=== PATIENT | female | born 2000 | race Caucasian/White ===

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

== ENCOUNTER 2018-02-23 15:36 | Inpatient (IN) | payer MEDICAID ==
[~2018-02-23] VITALS: Ht 175.3 cm; Wt 76.4 kg
[~2018-02-23 15:36] MED LIST changes: -AMOX-580 PO
[2018-02-23] MEDS ORDERED: pantoprazole 40 MG vial IV ONE (15:45)
[2018-02-23] MEDS ORDERED: famotidine/PF 10 mg/ml inj IV ONE (15:45)
[2018-02-23 16:03] LABS: BASOPHILS # (AUTO) 0.1 X10'3 (0-0.2); BASOPHILS % (AUTO) 0.6 % (0-1); EOSINOPHILS # (AUTO) 0.1 X10'3 (0-0.9); EOSINOPHILS % (AUTO) 0.8 % (0-6); HEMATOCRIT 44.3 % (35.0-45.0); HEMOGLOBIN 15.6 g/dl (12.0-16.0); LYMPHOCYTES # (AUTO) 2.3 X10'3 (1.1-4.8); LYMPHOCYTES % (AUTO) 23.7 % (21-51); MEAN CORPUSCULAR HEMOGLOBIN 29.3 PG (27.0-31.0); MEAN CORPUSCULAR HGB CONC 35.1 % (33.0-36.5); MEAN CORPUSCULAR VOLUME 83.4 FL (78-98); MEAN PLATELET VOLUME 9.4 FL (7.4-10.4); MONOCYTES % (AUTO) 10.9 % (2-12); NEUTROPHILS # (AUTO) 6.1 X10'3 (1.8-7.7); PLATELET COUNT 482 X10'3 (140-440); RED BLOOD COUNT 5.32 X10'6 (4.20-5.60); RED CELL DISTRIBUTION WIDTH 14.4 % (11.5-14.5); WHITE BLOOD COUNT 9.5 X10'3 (4.5-11.0)
[2018-02-23] MEDS ORDERED: ondansetron/PF 4mg/2ml inj IV ONE ×3 (16:05→20:35)
[2018-02-23 16:20] LABS: ALANINE AMINOTRANSFERASE 21 U/L (12-78); ALBUMIN 4.5 G/DL (3.4-5.0); ALBUMIN/GLOBULIN RATIO 1.2 (1.1-1.5); ALKALINE PHOSPHATASE 99 IU/L (20-180); ANION GAP 11 (8-16); ASPARTATE AMINO TRANSFERASE 16 U/L (10-37); BILIRUBIN,TOTAL 1.1 MG/DL (0.1-1.0); BLOOD UREA NITROGEN 9 MG/DL (7-18); BUN/CREATININE RATIO 11.8 (6.6-38.0); CALCIUM 9.1 MG/DL (8.5-10.1); CHLORIDE 104 MMOL/L (99-107); CREATININE 0.76 MG/DL (0.40-0.90); GLUCOSE 85 MG/DL (70-104); LIPASE 157 U/L (73-393); POTASSIUM 3.9 MMOL/L (3.5-5.1); SODIUM 141 MMOL/L (135-145); TOTAL CARBON DIOXIDE 25.7 MMOL/L (24-32); TOTAL PROTEIN 8.2 G/DL (6.4-8.2); eGFR > 90 ML/MIN
[2018-02-23] MEDS: morphine 4 MG/ML inj SYRINge IV PRN ×4 (16:20→23:10)
[2018-02-23] MEDS ORDERED: normal saline 1000ML IV soln IVB ONE (16:40)
[2018-02-23 16:58] LABS: URINE HCG NEGATIVE (NEG)
[2018-02-23 17:08] LABS: CLARITY,URINE CLEAR (Clear); COLOR,URINE STRAW (Yellow); GLUCOSE, URINE NEGATIVE (Neg); KETONES,URINE NEGATIVE (Neg); LEUKOCYTE ESTERASE ,URINE NEGATIVE (Neg); NITRITES, URINE NEGATIVE (Neg); OCCULT BLOOD,URINE NEGATIVE (Neg); PROTEIN,URINE NEGATIVE (Neg); UA COLLECTION TYPE CLN CATCH MIDSTREAM; UROBILINOGEN,URINE 0.2 E.U/dL (0.2-1.0)
[2018-02-23] MEDS ORDERED: fentaNYL/PF 50MCG/1 ML 2ML syringe IV ONE ×2 (17:30→19:00)
[2018-02-23] MEDS ORDERED: diphenhydrAMINE 50 mg/ml inj IV ONE (17:50)
[2018-02-23] MEDS ORDERED: DICL50PO5 PO (19:16)
[2018-02-23] MEDS ORDERED: TOPI100T18 PO (19:16)
[2018-02-23] MEDS ORDERED: SUMA11AE (19:18)
[2018-02-23] MEDS ORDERED: SUMA50TA PO (19:18)
[2018-02-23 21:00] VITALS: BP 120/62
[2018-02-23] MEDS ORDERED: MIDAZolam 5mg/5ml vial ONE (21:04)
[2018-02-23] MEDS ORDERED: LIDOcaine Viscous 15ml cup ONE (21:04)
[2018-02-23] MEDS ORDERED: fentaNYL/PF 50MCG/1 ML 2ML syringe ONE (21:04)
[2018-02-23] MEDS ORDERED: diphenhydrAMINE 50 mg/ml inj ONE (21:13)
[2018-02-23 21:31] VITALS: BP 95/56
[2018-02-23 21:41] VITALS: BP 111/75
[2018-02-23 21:51] VITALS: BP 104/69
[2018-02-23 22:01] VITALS: BP 105/62
[2018-02-24] MEDS ORDERED: acetaminophen 325mg tablet PO PRN (00:10)
[2018-02-24] MEDS ORDERED: docusate sod 100mg capsule PO PRN (00:10)
[2018-02-24] MEDS ORDERED: magnesium hydroxide 30ml (MOM) UD suspension PO PRN (00:10)
[2018-02-24] MEDS ORDERED: mag hydrox/Alum hydrox/simeth 30ml oral suspension PO PRN (00:10)
[2018-02-24] MEDS: normal saline 1000ml 1,000 ML IV SCH ×3 (00:17→20:04)
[2018-02-24] MEDS: HYDROmorphone 1 mg/ml syringe IV PRN ×3 (00:17→14:22)
[2018-02-24] MEDS: ondansetron/PF 4mg/2ml inj IV PRN ×4 (00:17→22:32)
[2018-02-24 01:20] VITALS: BP 124/74
[2018-02-24] MEDS ORDERED: diphenhydrAMINE 25mg capsule PO ONE (01:55)
[2018-02-24 07:19] VITALS: BP 96/42
[2018-02-24] MEDS: pantoprazole 40 MG vial IV SCH ×2 (07:44→20:04)
[2018-02-24 11:16] VITALS: BP 101/50
[2018-02-24] MEDS: acetaminophen 325mg tablet PO PRN (11:59)
[2018-02-24] MEDS ORDERED: ketorolac trometh. 30mg/ml inj. IV ONE (22:50)
[2018-02-25] VITALS: BP 117/54
[2018-02-25 04:30] LABS: BASOPHILS # (AUTO) 0.1 X10'3 (0-0.2); EOSINOPHILS # (AUTO) 0.1 X10'3 (0-0.9); EOSINOPHILS % (AUTO) 0.6 % (0-6); HEMATOCRIT 38.3 % (35.0-45.0); HEMOGLOBIN 13.7 g/dl (12.0-16.0); LYMPHOCYTES # (AUTO) 3.2 X10'3 (1.1-4.8); MEAN CORPUSCULAR HEMOGLOBIN 29.4 PG (27.0-31.0); MEAN CORPUSCULAR HGB CONC 35.8 % (33.0-36.5); MEAN CORPUSCULAR VOLUME 82.1 FL (78-98); MEAN PLATELET VOLUME 9.8 FL (7.4-10.4); MONOCYTES # (AUTO) 1.2 X10'3 (0-0.9); MONOCYTES % (AUTO) 9.7 % (2-12); NEUTROPHILS # (AUTO) 7.4 X10'3 (1.8-7.7); NEUTROPHILS % (AUTO) 61.7 % (42-75); PLATELET COUNT 423 X10'3 (140-440); RED BLOOD COUNT 4.67 X10'6 (4.20-5.60); RED CELL DISTRIBUTION WIDTH 13.6 % (11.5-14.5)
[2018-02-25] MEDS ORDERED: morphine 2 MG/ML inj. syringe IV PRN (04:40)
[2018-02-25 04:41] LABS: ALBUMIN 3.4 G/DL (3.4-5.0); ANION GAP 10 (8-16); BLOOD UREA NITROGEN 8 MG/DL (7-18); BUN/CREATININE RATIO 10.8 (6.6-38.0); CALCIUM 8.7 MG/DL (8.5-10.1); CHLORIDE 106 MMOL/L (99-107); CREATININE 0.74 MG/DL (0.40-0.90); GLUCOSE 85 MG/DL (70-104); POTASSIUM 3.8 MMOL/L (3.5-5.1); SODIUM 142 MMOL/L (135-145); TOTAL CARBON DIOXIDE 25.7 MMOL/L (24-32); eGFR > 90 ML/MIN
[2018-02-25] MEDS: ondansetron/PF 4mg/2ml inj IV PRN ×3 (04:46→20:23)
[2018-02-25] MEDS: normal saline 1000ml 1,000 ML IV SCH ×2 (04:51→18:33)
[2018-02-25 07:09] VITALS: BP 111/58
[2018-02-25] MEDS: pantoprazole 40 MG vial IV SCH ×2 (07:33→19:35)
[2018-02-25 12:03] LABS: ALANINE AMINOTRANSFERASE 22 U/L (12-78); ALBUMIN/GLOBULIN RATIO 1.1 (1.1-1.5); ALKALINE PHOSPHATASE 78 IU/L (20-180); ASPARTATE AMINO TRANSFERASE 18 U/L (10-37); BILIRUBIN,DIRECT 0.2 MG/DL (0-0.3); BILIRUBIN,TOTAL 1.3 MG/DL (0.1-1.0); TOTAL PROTEIN 6.4 G/DL (6.4-8.2)
[2018-02-25 13:02] VITALS: BP 123/63
[2018-02-25] MEDS: HYDROmorphone 1 mg/ml syringe IV PRN ×2 (14:16→20:26)
[2018-02-25] MEDS: CefTRIAXone/D5W-Rocephin 1gm 50 ML IV SCH (14:18)
[2018-02-25] MEDS: acetaminophen 325mg tablet PO PRN ×2 (14:20→20:23)
[2018-02-25 20:00] VITALS: BP 122/62
[2018-02-26] VITALS: BP 101/60
[2018-02-26] MEDS: normal saline 1000ml 1,000 ML IV SCH ×2 (03:41→13:24)
[2018-02-26 05:48] LABS: BASOPHILS # (AUTO) 0.1 X10'3 (0-0.2); BASOPHILS % (AUTO) 0.8 % (0-1); EOSINOPHILS # (AUTO) 0.1 X10'3 (0-0.9); EOSINOPHILS % (AUTO) 1.3 % (0-6); HEMATOCRIT 39.9 % (35.0-45.0); HEMOGLOBIN 14.2 g/dl (12.0-16.0); LYMPHOCYTES # (AUTO) 3.3 X10'3 (1.1-4.8); LYMPHOCYTES % (AUTO) 32.7 % (21-51); MEAN CORPUSCULAR HEMOGLOBIN 29.4 PG (27.0-31.0); MEAN CORPUSCULAR HGB CONC 35.5 % (33.0-36.5); MEAN CORPUSCULAR VOLUME 82.6 FL (78-98); MEAN PLATELET VOLUME 10.8 FL (7.4-10.4); MONOCYTES # (AUTO) 1.2 X10'3 (0-0.9); MONOCYTES % (AUTO) 11.9 % (2-12); NEUTROPHILS # (AUTO) 5.4 X10'3 (1.8-7.7); NEUTROPHILS % (AUTO) 53.3 % (42-75); PLATELET COUNT 395 X10'3 (140-440); RED BLOOD COUNT 4.83 X10'6 (4.20-5.60); RED CELL DISTRIBUTION WIDTH 13.8 % (11.5-14.5); WHITE BLOOD COUNT 10.1 X10'3 (4.5-11.0)
[2018-02-26 06:08] LABS: ALBUMIN 3.5 G/DL (3.4-5.0); ANION GAP 14 (8-16); BLOOD UREA NITROGEN 9 MG/DL (7-18); BUN/CREATININE RATIO 12.3 (6.6-38.0); CALCIUM 8.3 MG/DL (8.5-10.1); CHLORIDE 104 MMOL/L (99-107); CREATININE 0.73 MG/DL (0.40-0.90); GLUCOSE 79 MG/DL (70-104); POTASSIUM 3.6 MMOL/L (3.5-5.1); SODIUM 140 MMOL/L (135-145); TOTAL CARBON DIOXIDE 22.2 MMOL/L (24-32); eGFR > 90 ML/MIN
[2018-02-26] MEDS: CefTRIAXone/D5W-Rocephin 1gm 50 ML IV SCH (07:15)
[2018-02-26] MEDS: pantoprazole 40 MG vial IV SCH (07:16)
[2018-02-26] MEDS: ondansetron/PF 4mg/2ml inj IV PRN ×2 (07:29→13:19)
[2018-02-26 08:34] VITALS: BP 107/69
[2018-02-26 11:36] LABS: ALANINE AMINOTRANSFERASE 20 U/L (12-78); ALBUMIN 3.8 G/DL (3.4-5.0); ALBUMIN/GLOBULIN RATIO 1.2 (1.1-1.5); ALKALINE PHOSPHATASE 75 IU/L (20-180); ANION GAP 15 (8-16); ASPARTATE AMINO TRANSFERASE 14 U/L (10-37); BILIRUBIN,TOTAL 1.3 MG/DL (0.1-1.0); BLOOD UREA NITROGEN 6 MG/DL (7-18); BUN/CREATININE RATIO 8.1 (6.6-38.0); CALCIUM 8.9 MG/DL (8.5-10.1); CHLORIDE 104 MMOL/L (99-107); CREATININE 0.74 MG/DL (0.40-0.90); GLUCOSE 73 MG/DL (70-104); POTASSIUM 3.8 MMOL/L (3.5-5.1); SODIUM 142 MMOL/L (135-145); TOTAL CARBON DIOXIDE 22.9 MMOL/L (24-32); eGFR > 90 ML/MIN
[2018-02-26 12:00] VITALS: BP 102/56
[2018-02-26] MEDS: acetaminophen 325mg tablet PO PRN (12:07)
[2018-02-26] MEDS: HYDROmorphone 1 mg/ml syringe IV PRN (12:08)
[2018-02-26] MEDS ORDERED: HYDR-569 PO (13:34)
[2018-02-26] MEDS ORDERED: SULF1TAB49 PO (13:34)
== END 2018-02-26 17:51 | disposition home or self-care (01) | DRG 241 ==
LOC: EEVIPCON 15:36 → ER 15:36 → ED HOLD 02-24 00:07 → SUR 3N 02-24 01:18
PROVIDERS: ADMIT Internal Medicine; ATTEND Internal Medicine
PROC: 0DB68ZX Excision of Stomach, Via Natural or Artificial Opening Endoscopic, Diagnostic (ICD-10-PCS; principal; 2018-02-23)
DX: K29.70 Gastritis, unspecified, without bleeding (principal); N13.30 Unspecified hydronephrosis; D58.0 Hereditary spherocytosis; R19.7 Diarrhea, unspecified; G43.909 Migraine, unspecified, not intractable, without status migrainosus; Z90.49 Acquired absence of other specified parts of digestive tract; Z90.81 Acquired absence of spleen; Z88.1 Allergy status to other antibiotic agents; Z79.899 Other long term (current) drug therapy; Z80.1 Family history of malignant neoplasm of trachea, bronchus and lung
CPT/HCPCS: 36415; 43239; 74176; 76700; 76856; 80048; 80053; 80076; 81003; 81025; 83690; 85025; 87070; 96374; 96375; 96376; 99285; A4620; C9113; G0500; J0696; J1170; J1200; J1885; J2250; J2270; J2405; J3010; J3490; J7030; Q0163

== ENCOUNTER 2018-03-17 14:50 | Emergency (ER) | payer MEDICAID ==
[~2018-03-17] VITALS: Ht 175.3 cm; Wt 76.4 kg
[~2018-03-17 14:50] MED LIST changes: -CYCL-1 PO; +HYDR-4383 PO; +SUMA11AE; +TOPI100T18 PO; -TOPI50TA PO
[2018-03-17 15:56] VITALS: BP 118/99
== END 2018-03-17 15:58 | disposition home or self-care (01) ==
LOC: ER 14:51
DX: S90.01XA Contusion of right ankle, initial encounter (principal); W23.0XXA Caught, crushed, jammed, or pinched between moving objects, initial encounter; Y93.89 Activity, other specified; Y92.89 Other specified places as the place of occurrence of the external cause; Y99.8 Other external cause status; Z88.1 Allergy status to other antibiotic agents; Z90.49 Acquired absence of other specified parts of digestive tract
CPT/HCPCS: 29515; 73610; 99284

== ENCOUNTER 2018-05-28 00:12 | Emergency (ER) | payer MEDICAID ==
[~2018-05-28] VITALS: Ht 175.3 cm; Wt 77.2 kg
[2018-05-28] MEDS ORDERED: ketorolac tromethamine 15mg/ml inj. IV ONE (00:35)
[2018-05-28] MEDS ORDERED: methylPREDNISolone sod succ 125mg/2ml vial IV ONE (00:35)
[2018-05-28] MEDS ORDERED: metoclopramide 5 mg/ml inj IV ONE (00:35)
[2018-05-28] MEDS ORDERED: normal saline 1000ML IV soln IVB ONE (00:35)
[2018-05-28 01:58] VITALS: BP 135/70
[2018-05-28] MEDS ORDERED: SUMA100T PO (02:59)
== END 2018-05-28 03:33 | disposition home or self-care (01) ==
LOC: ER 00:13 → EEVIPCON 00:13 → ER 03:33
DX: G43.109 Migraine with aura, not intractable, without status migrainosus (principal); R11.2 Nausea with vomiting, unspecified; H53.149 Visual discomfort, unspecified; Z90.49 Acquired absence of other specified parts of digestive tract; Z90.81 Acquired absence of spleen; Z88.1 Allergy status to other antibiotic agents
CPT/HCPCS: 96361; 96374; 96375; 99283; J1885; J2765; J2930; J7030

== ENCOUNTER 2018-07-26 19:51 | Inpatient (IN) | payer MEDICAID | END 2018-07-28 16:59 | disposition home or self-care (01) | LOC: SUR 3N 23:59 → ER 19:51 → ED HOLD 22:29 ==